=== PATIENT | female | born 1935 | race Caucasian/White ===

== ENCOUNTER → 2020-03-30 | Outpatient (RCR) | payer MEDICARE ==
[~2020-03-30] MED LIST: ASPIRIN CHEW81 MG PO; BENAZEPRIL HCL20 MG PO; CLORAZEPATE D3.75 MG PO; CRESTOR10 MG PO; LASIX40 MG PO; LIDOCAINE VISC 2% SOLN 15 ML UDC ONE; LIDOCAINE/PRILOCAINE 2.5-2.5% KIT ONE; MUPIROCIN 2% OINT 22 GM TUBE ONE; NEXIUM40 MG PO; SYNTHROID100 MCG PO
== END ==
LOC: WCC 03-02 10:50
PROVIDERS: ATTEND Family Medicine Adult Medicine
DX: I82.401 Acute embolism and thrombosis of unspecified deep veins of right lower extremity (principal); S81.821A Laceration with foreign body, right lower leg, initial encounter; R60.0 Localized edema; C44.91 Basal cell carcinoma of skin, unspecified; E03.9 Hypothyroidism, unspecified; E78.49 Other hyperlipidemia; I10 Essential (primary) hypertension; M13.80 Other specified arthritis, unspecified site; W20.8XXA Other cause of strike by thrown, projected or falling object, initial encounter
CPT/HCPCS: 10140

== ENCOUNTER 2020-04-27 13:35 | Outpatient (RCR) | payer MEDICARE ==
[~2020-04-27 13:35] MED LIST changes: -MUPIROCIN 2% OINT 22 GM TUBE ONE
== END 2020-04-30 ==
LOC: WCC 13:35
PROVIDERS: ATTEND Family Medicine Adult Medicine
DX: I82.401 Acute embolism and thrombosis of unspecified deep veins of right lower extremity (principal); S81.821A Laceration with foreign body, right lower leg, initial encounter; R60.0 Localized edema; C44.91 Basal cell carcinoma of skin, unspecified; I10 Essential (primary) hypertension; E03.9 Hypothyroidism, unspecified; E78.49 Other hyperlipidemia; M13.80 Other specified arthritis, unspecified site; W20.8XXA Other cause of strike by thrown, projected or falling object, initial encounter

== ENCOUNTER 2020-05-25 15:06 | Outpatient (RCR) | payer MEDICARE ==
[~2020-05-25 15:06] MED LIST changes: +TRIAMCINOLONE ACET 0.1% CREAM 15 GM TUBE ONE
== END 2020-05-28 ==
LOC: WCC 15:06
PROVIDERS: ATTEND Family Medicine Adult Medicine
DX: I82.401 Acute embolism and thrombosis of unspecified deep veins of right lower extremity (principal); S81.821A Laceration with foreign body, right lower leg, initial encounter; R60.0 Localized edema; C44.91 Basal cell carcinoma of skin, unspecified; L98.8 Other specified disorders of the skin and subcutaneous tissue; L20.9 Atopic dermatitis, unspecified; I10 Essential (primary) hypertension; E03.9 Hypothyroidism, unspecified; E78.49 Other hyperlipidemia; M13.80 Other specified arthritis, unspecified site; W20.8XXA Other cause of strike by thrown, projected or falling object, initial encounter

== ENCOUNTER → 2020-05-29 | Outpatient (CLI) | payer MEDICARE ==
[~2020-05-29] MED LIST changes: -LIDOCAINE VISC 2% SOLN 15 ML UDC ONE; -LIDOCAINE/PRILOCAINE 2.5-2.5% KIT ONE; -TRIAMCINOLONE ACET 0.1% CREAM 15 GM TUBE ONE
== END ==
LOC: CARD 07:55
PROVIDERS: ATTEND Family Medicine Adult Medicine
DX: S81.821A Laceration with foreign body, right lower leg, initial encounter (principal)
CPT/HCPCS: 93925; 93970

== ENCOUNTER 2020-06-08 14:06 | Outpatient (RCR) | payer MEDICARE ==
[2020-06-08] MEDS ORDERED: MINERAL OIL/PETROLAT/GLYCERI 2OZ CRM ONE (16:22)
== END 2020-06-28 ==
LOC: WCC 14:06
PROVIDERS: ATTEND Family Medicine Adult Medicine
DX: C44.91 Basal cell carcinoma of skin, unspecified (principal); I82.401 Acute embolism and thrombosis of unspecified deep veins of right lower extremity; L98.8 Other specified disorders of the skin and subcutaneous tissue; R60.0 Localized edema; S81.821A Laceration with foreign body, right lower leg, initial encounter; S80.811A Abrasion, right lower leg, initial encounter; E03.9 Hypothyroidism, unspecified; E78.49 Other hyperlipidemia; I10 Essential (primary) hypertension; M13.80 Other specified arthritis, unspecified site; W20.8XXA Other cause of strike by thrown, projected or falling object, initial encounter; X58.XXXA Exposure to other specified factors, initial encounter

== ENCOUNTER 2021-06-22 08:52 | Inpatient (IN) | payer MEDICARE ==
[~2021-06-22] VITALS: Ht 160 cm; Wt 68.0 kg
[2021-06-22] MEDS ORDERED: Vancomycin IV 1 GM in SODIUM CHLORIDE 0.9% 250ML 250 ML IV ONE (09:30)
[2021-06-22] MEDS ORDERED: PIPERACILLIN/TAZOBACTAM 3.375 GM in SODIUM CHLORIDE 0.9% 50ML 50 ML IV ONE (09:30)
[2021-06-22] MEDS ORDERED: SODIUM CHLORIDE 0.9% 250ML 250 ML ONE ×2 (09:42→12:11)
[2021-06-22] MEDS ORDERED: Vancomycin IV 1 GM VIAL ONE (09:42)
[2021-06-22] MEDS ORDERED: SODIUM CHLORIDE 0.9% 100 ML ONE (09:44)
[2021-06-22] MEDS ORDERED: PIPERACILLIN/TAZOBACTAM 3.375 GM VIAL ONE (09:45)
[2021-06-22] MEDS ORDERED: ONDANSETRON HCL INJ 2MG/ML 2ML 2 MG/ML VIAL IV PRN ×2 (10:00→11:45)
[2021-06-22] MEDS ORDERED: SODIUM CHLORIDE FLUSH 10 ML SYR INJ PRN (10:00)
[2021-06-22] MEDS ORDERED: ACETAMINOPHEN 325 MG TAB PO ONE (10:00)
[2021-06-22 11:28] VITALS: BP 111/63
[2021-06-22 11:35] VITALS: BP 111/63
[2021-06-22] MEDS ORDERED: DEXAMETHASONE SOD PHOS INJ 4 MG/ML SDV ONE (12:25)
[2021-06-22] MEDS ORDERED: METOPROLOL TARTRATE INJ 1 MG/ML VIAL ONE (12:25)
[2021-06-22] MEDS ORDERED: ONDANSETRON HCL INJ 2MG/ML 2ML 2 MG/ML VIAL ONE (12:25)
[2021-06-22] MEDS ORDERED: PROPOFOL IV EMULSION 10 MG/ML 20 ML VIAL ONE (12:25)
[2021-06-22] MEDS ORDERED: SEVOFLURANE INHAL SOLN 250 ML PEN BTL ONE (12:25)
[2021-06-22] MEDS ORDERED: POVIDONE IODINE 0.05% 0.05 % ML PO ONE (12:25)
[2021-06-22] MEDS: PIPERACILLIN/TAZOBACTAM 3.375 GM in SODIUM CHLORIDE 0.9% 50ML 50 ML IV SCH ×2 (12:47→16:59)
[2021-06-22] MEDS: PANTOPRAZOLE SOD 40 MG TABEC PO SCH (16:59)
[2021-06-22] MEDS: ENOXAPARIN SOD INJ 40 MG/0.4 ML SYR SC SCH (16:59)
[2021-06-22 17:57] VITALS: BP 98/63
[2021-06-22 20:05] VITALS: BP 112/58
[2021-06-22] MEDS: ACETAMINOPHEN/CODEINE 300MG - 30MG TAB PO PRN (21:20)
[2021-06-22 23:11] VITALS: BP 112/58
[2021-06-23] VITALS (8 sets, daily range): BP systolic 106–143; BP diastolic 53–76
[2021-06-23] MEDS: LEVOTHYROXINE SODIUM 100 MCG TAB PO SCH (05:50)
[2021-06-23] MEDS: ACETAMINOPHEN 325 MG TAB PO PRN ×2 (05:50→23:20)
[2021-06-23] MEDS: PIPERACILLIN/TAZOBACTAM 3.375 GM in SODIUM CHLORIDE 0.9% 50ML 50 ML IV SCH ×6 (05:50→23:20)
[2021-06-23 05:55] LABS: BASOPHILS # (AUTO) 0.1 (0.0-0.1); BASOPHILS % 1.4 % (0.0-1.0); EOSINOPHILS # (AUTO) 0.3 (0.0-0.4); EOSINOPHILS % 4.7 % (0.0-6.0); HEMATOCRIT 34.7 % (34.2-44.1); HEMOGLOBIN 10.2 g/dL (12.0-16.0); LYMPHOCYTES # (AUTO) 1.5 (1.0-3.2); MEAN CORPUSCULAR HEMOGLOBIN 28.7 pg (28-32); MEAN CORPUSCULAR HGB CONC 29.4 g/dL (31-35); MEAN CORPUSCULAR VOLUME 97.7 fL (81-99); MONOCYTES # (AUTO) 0.8 (0.2-0.8); MONOCYTES % 12.7 % (4.4-11.3); NEUTROPHILS # (AUTO) 3.7 (2.1-6.9); NEUTROPHILS % 57.7 % (38.7-80.0); PLATELET COUNT 220 x10e3/uL (140-360); RED BLOOD COUNT 3.55 x10e6/uL (3.6-5.1)
[2021-06-23 06:15] LABS: ANION GAP 12.6 mmol/L (8-16); CALCIUM 7.3 mg/dL (8.4-10.2); CREATININE, SERUM 1.24 mg/dL (0.57-1.11); POTASSIUM 4.6 mmol/L (3.5-5.1)
[2021-06-23] MEDS ORDERED: SIMVASTATIN 40 MG TAB PO SCH (09:00)
[2021-06-23] MEDS: PANTOPRAZOLE SOD 40 MG TABEC PO SCH ×2 (09:53→17:11)
[2021-06-23] MEDS: ASPIRIN 81 MG CHEW TAB PO SCH (09:53)
[2021-06-23] MEDS: BENAZEPRIL HCL 10 MG TAB PO SCH (09:54)
[2021-06-23] MEDS: CRESTOR 10MG PO SCH (09:54)
[2021-06-23] MEDS: ACETAMINOPHEN/CODEINE 300MG - 30MG TAB PO PRN (09:57)
[2021-06-23] MEDS ORDERED: Vancomycin IV 1 GM in SODIUM CHLORIDE 0.9% 250ML 250 ML IV ONE ×2 (14:00→17:30)
[2021-06-23] MEDS: ACETAMIN/BUTALBITAL/CAFFEINE TAB PO PRN (14:14)
[2021-06-23] MEDS: ENOXAPARIN SOD INJ 40 MG/0.4 ML SYR SC SCH (17:11)
[2021-06-23] MEDS: CLORAZEPATE DIPOTASSIUM 3.75 MG TAB PO SCH (17:23)
[2021-06-24] VITALS (7 sets, daily range): BP systolic 123–155; BP diastolic 59–98
[2021-06-24] MEDS: LEVOTHYROXINE SODIUM 100 MCG TAB PO SCH (05:18)
[2021-06-24] MEDS: PIPERACILLIN/TAZOBACTAM 3.375 GM in SODIUM CHLORIDE 0.9% 50ML 50 ML IV SCH (05:18)
[2021-06-24 07:26] LABS: ALBUMIN 2.6 g/dL (3.5-5.0); ALBUMIN/GLOBULIN RATIO 0.7 (0.8-2.0); ANION GAP 9.2 mmol/L (8-16); CALCIUM 7.3 mg/dL (8.4-10.2); CREATININE, SERUM 1.09 mg/dL (0.57-1.11); POTASSIUM 4.2 mmol/L (3.5-5.1)
[2021-06-24] MEDS: PANTOPRAZOLE SOD 40 MG TABEC PO SCH ×2 (08:45→16:04)
[2021-06-24] MEDS: CRESTOR 10MG PO SCH (08:45)
[2021-06-24] MEDS: ASPIRIN 81 MG CHEW TAB PO SCH (08:45)
[2021-06-24] MEDS: BENAZEPRIL HCL 10 MG TAB PO SCH (08:46)
[2021-06-24] MEDS: CLORAZEPATE DIPOTASSIUM 3.75 MG TAB PO SCH ×2 (08:46→20:23)
[2021-06-24] MEDS: ACETAMINOPHEN/CODEINE 300MG - 30MG TAB PO PRN (08:48)
[2021-06-24] MEDS: FUROSEMIDE 20 MG TAB PO SCH (13:38)
[2021-06-24] MEDS: Vancomycin IV 1 GM in SODIUM CHLORIDE 0.9% 250ML 250 ML IV SCH (13:38)
[2021-06-24] MEDS: HYDROCODONE/APAP 5MG-325MG TAB PO PRN (14:42)
[2021-06-24] MEDS: ENOXAPARIN SOD INJ 40 MG/0.4 ML SYR SC SCH (16:05)
[2021-06-24] MEDS: CEFEPIME 1 GM in SODIUM CHLORIDE 0.9% 50ML 50 ML IV SCH (20:23)
[2021-06-25] VITALS (7 sets, daily range): BP systolic 120–135; BP diastolic 59–73
[2021-06-25] MEDS: Vancomycin IV 1 GM in SODIUM CHLORIDE 0.9% 250ML 250 ML IV SCH ×2 (00:52→13:15)
[2021-06-25] MEDS: ACETAMIN/BUTALBITAL/CAFFEINE TAB PO PRN (04:29)
[2021-06-25] MEDS: LEVOTHYROXINE SODIUM 100 MCG TAB PO SCH (05:26)
[2021-06-25] MEDS: PANTOPRAZOLE SOD 40 MG TABEC PO SCH ×2 (07:30→17:06)
[2021-06-25] MEDS: CEFEPIME 1 GM in SODIUM CHLORIDE 0.9% 50ML 50 ML IV SCH ×2 (09:00→20:48)
[2021-06-25] MEDS: CRESTOR 10MG PO SCH (09:00)
[2021-06-25] MEDS: ASPIRIN 81 MG CHEW TAB PO SCH (09:00)
[2021-06-25] MEDS: FUROSEMIDE 20 MG TAB PO SCH (09:35)
[2021-06-25] MEDS: BENAZEPRIL HCL 10 MG TAB PO SCH (09:35)
[2021-06-25] MEDS: CLORAZEPATE DIPOTASSIUM 3.75 MG TAB PO SCH ×2 (09:35→20:48)
[2021-06-25] MEDS: HYDROCODONE/APAP 5MG-325MG TAB PO PRN ×2 (09:40→18:48)
[2021-06-25] MEDS ORDERED: BUPIVACAINE HCL 0.5% INJ 30 ML VIAL INJ ONE (14:04)
[2021-06-25] MEDS ORDERED: ONDANSETRON HCL INJ 2MG/ML 2ML 2 MG/ML VIAL ONE (14:26)
[2021-06-25] MEDS ORDERED: ONDANSETRON HCL 4 MG ORAL DISINTEGRATING TAB PO PRN (19:15)
[2021-06-26] VITALS (8 sets, daily range): BP systolic 95–113; BP diastolic 51–78
[2021-06-26] MEDS: Vancomycin IV 1 GM in SODIUM CHLORIDE 0.9% 250ML 250 ML IV SCH (01:11)
[2021-06-26 05:00] LABS: BASOPHILS % 0.3 % (0.0-1.0); HEMOGLOBIN 9.9 g/dL (12.0-16.0); LYMPHOCYTES # (AUTO) 0.6 (1.0-3.2); LYMPHOCYTES % 5.1 % (18.0-39.1); MEAN CORPUSCULAR HEMOGLOBIN 29.5 pg (28-32); MEAN CORPUSCULAR VOLUME 98.2 fL (81-99); MONOCYTES # (AUTO) 1.3 (0.2-0.8); MONOCYTES % 12.3 % (4.4-11.3); NEUTROPHILS # (AUTO) 8.8 (2.1-6.9); NEUTROPHILS % 81.7 % (38.7-80.0); PLATELET COUNT 173 x10e3/uL (140-360); RED BLOOD COUNT 3.36 x10e6/uL (3.6-5.1)
[2021-06-26 05:24] LABS: ALBUMIN/GLOBULIN RATIO 0.5 (0.8-2.0); ANION GAP 15.9 mmol/L (8-16); CREATININE, SERUM 1.42 mg/dL (0.57-1.11); POTASSIUM 3.9 mmol/L (3.5-5.1)
[2021-06-26 05:55] LABS: CALCIUM 6.8 mg/dL (8.4-10.2)
[2021-06-26] MEDS ORDERED: CALCIUM GLUC 1 G/50 ML NACL 50 ML IV ONE (06:15)
[2021-06-26] MEDS: LEVOTHYROXINE SODIUM 100 MCG TAB PO SCH (06:48)
[2021-06-26] MEDS ORDERED: LACTATED RINGER'S 1,000 ML INJ ONE (09:15)
[2021-06-26] MEDS: ASPIRIN 81 MG CHEW TAB PO SCH (09:50)
[2021-06-26] MEDS: CRESTOR 10MG PO SCH (09:50)
[2021-06-26] MEDS: CLORAZEPATE DIPOTASSIUM 3.75 MG TAB PO SCH ×2 (09:51→21:30)
[2021-06-26] MEDS: BENAZEPRIL HCL 10 MG TAB PO SCH (09:51)
[2021-06-26] MEDS: PIPERACILLIN/TAZOBACTAM 3.375 GM in SODIUM CHLORIDE 0.9% 50ML 50 ML IV SCH ×2 (09:52→21:30)
[2021-06-26] MEDS ORDERED: ENOXAPARIN SOD INJ 40 MG/0.4 ML SYR SC SCH ×2 (17:00)
[2021-06-26] MEDS: HYDROCODONE/APAP 5MG-325MG TAB PO PRN (21:45)
[2021-06-27] VITALS (9 sets, daily range): BP systolic 94–118; BP diastolic 54–70
[2021-06-27] MEDS: ACETAMIN/BUTALBITAL/CAFFEINE TAB PO PRN (04:42)
[2021-06-27 04:57] LABS: BASOPHILS % 0.2 % (0.0-1.0); EOSINOPHILS # (AUTO) 0.1 (0.0-0.4); EOSINOPHILS % 1.1 % (0.0-6.0); HEMATOCRIT 31.8 % (34.2-44.1); LYMPHOCYTES # (AUTO) 1.1 (1.0-3.2); MEAN CORPUSCULAR HEMOGLOBIN 28.7 pg (28-32); MEAN CORPUSCULAR HGB CONC 31.4 g/dL (31-35); MEAN CORPUSCULAR VOLUME 91.4 fL (81-99); MONOCYTES % 9.1 % (4.4-11.3); NEUTROPHILS % 78.9 % (38.7-80.0); PLATELET COUNT 231 x10e3/uL (140-360); RED BLOOD COUNT 3.48 x10e6/uL (3.6-5.1); RED CELL DISTRIBUTION WIDTH 14.9 % (11.7-14.4)
[2021-06-27] MEDS: LEVOTHYROXINE SODIUM 100 MCG TAB PO SCH (05:00)
[2021-06-27 05:21] LABS: ANION GAP 12.9 mmol/L (8-16); CALCIUM 7.1 mg/dL (8.4-10.2); CREATININE, SERUM 1.72 mg/dL (0.57-1.11); POTASSIUM 3.9 mmol/L (3.5-5.1)
[2021-06-27] MEDS: CLORAZEPATE DIPOTASSIUM 3.75 MG TAB PO SCH ×2 (09:00→20:59)
[2021-06-27] MEDS: MUPIROCIN 2% OINT 22 GM TUBE TOP SCH (09:00)
[2021-06-27] MEDS: PIPERACILLIN/TAZOBACTAM 3.375 GM in SODIUM CHLORIDE 0.9% 50ML 50 ML IV SCH ×2 (09:00→20:58)
[2021-06-27] MEDS: CRESTOR 10MG PO SCH (09:17)
[2021-06-27] MEDS: ASPIRIN 81 MG CHEW TAB PO SCH (09:17)
[2021-06-27] MEDS: METOPROLOL TARTRATE 25 MG TAB PO PRN (09:18)
[2021-06-27] MEDS: LACTATED RINGER'S 1,000 ML INJ SCH ×2 (11:55→17:15)
[2021-06-27] MEDS: METOPROLOL TARTRATE 50 MG TAB PO SCH ×2 (12:00→16:50)
[2021-06-27] MEDS: AMIODARONE HCL 200 MG TAB PO SCH ×2 (12:30→20:58)
[2021-06-27] MEDS: HEPARIN SOD (PORCINE) 5,000 UNIT/ML VIAL SC SCH ×2 (12:30→20:20)
[2021-06-27] MEDS: ACETAMINOPHEN 325 MG TAB PO PRN (14:00)
[2021-06-27] MEDS ORDERED: IPRATROPIUM BROMIDE 0.02% 2.5 ML NEB NEB PRN (16:45)
[2021-06-27] MEDS: HYDROCODONE/APAP 5MG-325MG TAB PO PRN (20:45)
[2021-06-28] VITALS (8 sets, daily range): BP systolic 103–126; BP diastolic 60–77
[2021-06-28] MEDS: HEPARIN SOD (PORCINE) 5,000 UNIT/ML VIAL SC SCH ×3 (04:20→22:00)
[2021-06-28] MEDS: LACTATED RINGER'S 1,000 ML INJ SCH (04:30)
[2021-06-28 04:58] LABS: BASOPHILS % 0.4 % (0.0-1.0); EOSINOPHILS # (AUTO) 0.3 (0.0-0.4); EOSINOPHILS % 3.5 % (0.0-6.0); HEMOGLOBIN 9.6 g/dL (12.0-16.0); LYMPHOCYTES # (AUTO) 0.8 (1.0-3.2); MEAN CORPUSCULAR HEMOGLOBIN 29.1 pg (28-32); MEAN CORPUSCULAR VOLUME 90.9 fL (81-99); MONOCYTES # (AUTO) 0.8 (0.2-0.8); NEUTROPHILS # (AUTO) 7.1 (2.1-6.9); NEUTROPHILS % 77.2 % (38.7-80.0); PLATELET COUNT 259 x10e3/uL (140-360); RED CELL DISTRIBUTION WIDTH 14.6 % (11.7-14.4)
[2021-06-28] MEDS: HYDROCODONE/APAP 5MG-325MG TAB PO PRN (05:00)
[2021-06-28 05:20] LABS: ANION GAP 12.8 mmol/L (8-16); CALCIUM 7.1 mg/dL (8.4-10.2); CREATININE, SERUM 1.26 mg/dL (0.57-1.11); POTASSIUM 3.8 mmol/L (3.5-5.1)
[2021-06-28] MEDS ORDERED: HEPARIN SOD (PORCINE) 5,000 UNIT/ML VIAL SC SCH (09:00)
[2021-06-28] MEDS: AMIODARONE HCL 200 MG TAB PO SCH ×2 (10:30→16:50)
[2021-06-28] MEDS: CRESTOR 10MG PO SCH (10:30)
[2021-06-28] MEDS: ASPIRIN 81 MG CHEW TAB PO SCH (10:30)
[2021-06-28] MEDS: CLORAZEPATE DIPOTASSIUM 3.75 MG TAB PO SCH ×2 (10:30→21:00)
[2021-06-28] MEDS ORDERED: KETOROLAC TROMETHAMINE 30 MG/ML VIAL IV ONE (12:45)
[2021-06-28] MEDS: MUPIROCIN 2% OINT 22 GM TUBE TOP SCH (13:00)
[2021-06-28] MEDS ORDERED: KETOROLAC TROMETHAMINE 30 MG/ML VIAL IV PRN (15:00)
[2021-06-28] MEDS ORDERED: METHYLPREDNISOLONE SOD SUCC 40 MG/ML VIAL 1ML IV ONE (15:35)
[2021-06-28] MEDS: METOPROLOL TARTRATE 25 MG TAB PO SCH (16:50)
[2021-06-28] MEDS ORDERED: ENOXAPARIN SOD INJ 60 MG/0.6 ML SYR SC SCH (21:00)
[2021-06-29] VITALS (7 sets, daily range): BP systolic 109–137; BP diastolic 57–75
[2021-06-29 04:57] LABS: BASOPHILS % 0.1 % (0.0-1.0); HEMOGLOBIN 8.5 g/dL (12.0-16.0); LYMPHOCYTES # (AUTO) 0.5 (1.0-3.2); LYMPHOCYTES % 4.3 % (18.0-39.1); MEAN CORPUSCULAR HEMOGLOBIN 28.6 pg (28-32); MEAN CORPUSCULAR HGB CONC 31.5 g/dL (31-35); MEAN CORPUSCULAR VOLUME 90.9 fL (81-99); MONOCYTES # (AUTO) 0.6 (0.2-0.8); MONOCYTES % 4.8 % (4.4-11.3); NEUTROPHILS % 90.1 % (38.7-80.0); PLATELET COUNT 258 x10e3/uL (140-360); RED BLOOD COUNT 2.97 x10e6/uL (3.6-5.1); RED CELL DISTRIBUTION WIDTH 14.7 % (11.7-14.4)
[2021-06-29 05:27] LABS: ANION GAP 13.1 mmol/L (8-16); CALCIUM 7.2 mg/dL (8.4-10.2); CREATININE, SERUM 1.11 mg/dL (0.57-1.11); MAGNESIUM 2.5 MG/DL (1.3-2.1); POTASSIUM 4.1 mmol/L (3.5-5.1)
[2021-06-29] MEDS: HEPARIN SOD (PORCINE) 5,000 UNIT/ML VIAL SC SCH ×3 (05:36→21:33)
[2021-06-29] MEDS: METOPROLOL TARTRATE 25 MG TAB PO SCH ×2 (09:14→16:21)
[2021-06-29] MEDS: ASPIRIN 81 MG CHEW TAB PO SCH (09:14)
[2021-06-29] MEDS: CRESTOR 10MG PO SCH (09:14)
[2021-06-29] MEDS: AMIODARONE HCL 200 MG TAB PO SCH ×2 (09:14→16:20)
[2021-06-29] MEDS: CEFTRIAXONE 1 GM in SODIUM CHLORIDE 0.9% 50ML 50 ML IV SCH (09:15)
[2021-06-29] MEDS: CLORAZEPATE DIPOTASSIUM 3.75 MG TAB PO SCH ×2 (09:15→21:00)
[2021-06-29] MEDS: MUPIROCIN 2% OINT 22 GM TUBE TOP SCH (09:15)
[2021-06-29] MEDS: ACETAMIN/BUTALBITAL/CAFFEINE TAB PO PRN (21:42)
[2021-06-30] VITALS (7 sets, daily range): BP systolic 97–148; BP diastolic 55–87
[2021-06-30] MEDS: HEPARIN SOD (PORCINE) 5,000 UNIT/ML VIAL SC SCH (06:00)
[2021-06-30 07:02] LABS: BASOPHILS % 0.2 % (0.0-1.0); EOSINOPHILS # (AUTO) 0.2 (0.0-0.4); EOSINOPHILS % 1.9 % (0.0-6.0); HEMATOCRIT 27.6 % (34.2-44.1); HEMOGLOBIN 8.7 g/dL (12.0-16.0); LYMPHOCYTES # (AUTO) 1.1 (1.0-3.2); LYMPHOCYTES % 8.7 % (18.0-39.1); MEAN CORPUSCULAR HEMOGLOBIN 28.8 pg (28-32); MEAN CORPUSCULAR HGB CONC 31.5 g/dL (31-35); MEAN CORPUSCULAR VOLUME 91.4 fL (81-99); MONOCYTES # (AUTO) 0.9 (0.2-0.8); MONOCYTES % 7.2 % (4.4-11.3); PLATELET COUNT 337 x10e3/uL (140-360); RED BLOOD COUNT 3.02 x10e6/uL (3.6-5.1); RED CELL DISTRIBUTION WIDTH 14.8 % (11.7-14.4)
[2021-06-30 07:08] LABS: ANION GAP 12.9 mmol/L (8-16); CALCIUM 7.1 mg/dL (8.4-10.2); CREATININE, SERUM 1.09 mg/dL (0.57-1.11); POTASSIUM 3.9 mmol/L (3.5-5.1)
[2021-06-30] MEDS: AMIODARONE HCL 200 MG TAB PO SCH (09:42)
[2021-06-30] MEDS: METOPROLOL TARTRATE 25 MG TAB PO SCH ×2 (09:42→16:36)
[2021-06-30] MEDS: CLORAZEPATE DIPOTASSIUM 3.75 MG TAB PO SCH ×2 (09:42→21:06)
[2021-06-30] MEDS: CEFTRIAXONE 1 GM in SODIUM CHLORIDE 0.9% 50ML 50 ML IV SCH (09:42)
[2021-06-30] MEDS: ASPIRIN 81 MG CHEW TAB PO SCH (09:42)
[2021-06-30] MEDS: CRESTOR 10MG PO SCH (09:42)
[2021-06-30] MEDS: MUPIROCIN 2% OINT 22 GM TUBE TOP SCH (09:43)
[2021-06-30] MEDS: ACETAMIN/BUTALBITAL/CAFFEINE TAB PO PRN ×2 (10:00→20:00)
[2021-06-30] MEDS: ACETAMINOPHEN 325 MG TAB PO PRN ×2 (12:15→23:11)
[2021-06-30] MEDS: APIXAB 2.5 MG TABLET PO SCH (16:35)
[2021-07-01] VITALS (7 sets, daily range): BP systolic 97–162; BP diastolic 55–89
[2021-07-01 06:49] LABS: BASOPHILS # (AUTO) 0.1 (0.0-0.1); BASOPHILS % 0.5 % (0.0-1.0); EOSINOPHILS # (AUTO) 0.2 (0.0-0.4); EOSINOPHILS % 1.8 % (0.0-6.0); HEMATOCRIT 29.9 % (34.2-44.1); HEMOGLOBIN 9.4 g/dL (12.0-16.0); LYMPHOCYTES # (AUTO) 1.1 (1.0-3.2); LYMPHOCYTES % 9.3 % (18.0-39.1); MEAN CORPUSCULAR HEMOGLOBIN 28.5 pg (28-32); MEAN CORPUSCULAR HGB CONC 31.4 g/dL (31-35); MEAN CORPUSCULAR VOLUME 90.6 fL (81-99); MONOCYTES % 8.9 % (4.4-11.3); NEUTROPHILS # (AUTO) 8.8 (2.1-6.9); NEUTROPHILS % 77.1 % (38.7-80.0); PLATELET COUNT 423 x10e3/uL (140-360); RED CELL DISTRIBUTION WIDTH 14.8 % (11.7-14.4)
[2021-07-01] MEDS: ACETAMIN/BUTALBITAL/CAFFEINE TAB PO PRN (07:07)
[2021-07-01 07:16] LABS: ALBUMIN 1.8 g/dL (3.5-5.0); ALBUMIN/GLOBULIN RATIO 0.4 (0.8-2.0); ANION GAP 12.2 mmol/L (8-16); CALCIUM 7.5 mg/dL (8.4-10.2); CREATININE, SERUM 0.97 mg/dL (0.57-1.11); POTASSIUM 4.2 mmol/L (3.5-5.1)
[2021-07-01] MEDS: CRESTOR 10MG PO SCH (09:25)
[2021-07-01] MEDS: APIXAB 2.5 MG TABLET PO SCH ×2 (09:25→16:34)
[2021-07-01] MEDS: CEFTRIAXONE 1 GM in SODIUM CHLORIDE 0.9% 50ML 50 ML IV SCH (09:25)
[2021-07-01] MEDS: AMIODARONE HCL 200 MG TAB PO SCH (09:25)
[2021-07-01] MEDS: METOPROLOL TARTRATE 25 MG TAB PO SCH ×2 (09:26→16:35)
[2021-07-01] MEDS: MUPIROCIN 2% OINT 22 GM TUBE TOP SCH (09:26)
[2021-07-01] MEDS: CLORAZEPATE DIPOTASSIUM 3.75 MG TAB PO SCH (09:26)
[2021-07-01] MEDS ORDERED: SODIUM CHLORIDE 0.9% 250ML 250 ML ONE (09:41)
[2021-07-01] MEDS: ACETAMINOPHEN 325 MG TAB PO PRN ×2 (13:21→21:59)
[2021-07-01] MEDS: POLYETHYLENE GLYCOL 3350 17 GM PACK PO SCH (15:00)
[2021-07-01] MEDS: METOPROLOL TARTRATE 25 MG TAB PO PRN (21:59)
[2021-07-02] VITALS: BP 136/67
[2021-07-02 02:04] VITALS: BP 136/67
[2021-07-02 05:00] VITALS: BP 143/76
[2021-07-02 05:56] LABS: BASOPHILS # (AUTO) 0.1 (0.0-0.1); BASOPHILS % 0.8 % (0.0-1.0); EOSINOPHILS # (AUTO) 0.2 (0.0-0.4); EOSINOPHILS % 1.7 % (0.0-6.0); HEMATOCRIT 29.5 % (34.2-44.1); LYMPHOCYTES # (AUTO) 1.5 (1.0-3.2); MEAN CORPUSCULAR HGB CONC 30.5 g/dL (31-35); MEAN CORPUSCULAR VOLUME 91.9 fL (81-99); MONOCYTES # (AUTO) 1.2 (0.2-0.8); MONOCYTES % 10.5 % (4.4-11.3); NEUTROPHILS # (AUTO) 7.5 (2.1-6.9); NEUTROPHILS % 67.9 % (38.7-80.0); PLATELET COUNT 425 x10e3/uL (140-360); RED BLOOD COUNT 3.21 x10e6/uL (3.6-5.1); RED CELL DISTRIBUTION WIDTH 14.8 % (11.7-14.4)
[2021-07-02 08:00] VITALS: BP 152/92
[2021-07-02 08:40] VITALS: BP 152/92
[2021-07-02] MEDS: POLYETHYLENE GLYCOL 3350 17 GM PACK PO SCH (09:00)
[2021-07-02] MEDS: CRESTOR 10MG PO SCH (10:54)
[2021-07-02] MEDS: METOPROLOL TARTRATE 25 MG TAB PO SCH (10:54)
[2021-07-02] MEDS: CEFTRIAXONE 1 GM in SODIUM CHLORIDE 0.9% 50ML 50 ML IV SCH (10:54)
[2021-07-02] MEDS: APIXAB 2.5 MG TABLET PO SCH (10:54)
[2021-07-02] MEDS: AMIODARONE HCL 200 MG TAB PO SCH (10:54)
[2021-07-02] MEDS: MUPIROCIN 2% OINT 22 GM TUBE TOP SCH (10:55)
[2021-07-02 12:00] VITALS: BP 141/86
== END 2021-07-02 14:13 | DRG 516 ==
LOC: FSED 09:09 → ERHOLD 10:04 → MED/SURG2 11:00
PROVIDERS: ADMIT Internal Medicine; ATTEND Internal Medicine
PROC: 0QBR0ZZ Excision of Left Toe Phalanx, Open Approach (ICD-10-PCS; principal; 2021-06-26)
PROC: 02HV33Z Insertion of Infusion Device into Superior Vena Cava, Percutaneous Approach (ICD-10-PCS; 2021-06-30)
DX: M86.172 Other acute osteomyelitis, left ankle and foot (principal); I96 Gangrene, not elsewhere classified; L02.612 Cutaneous abscess of left foot; N17.9 Acute kidney failure, unspecified; S92.532A Displaced fracture of distal phalanx of left lesser toe(s), initial encounter for closed fracture; M10.072 Idiopathic gout, left ankle and foot; L03.032 Cellulitis of left toe; I10 Essential (primary) hypertension; E78.5 Hyperlipidemia, unspecified; E03.9 Hypothyroidism, unspecified; M19.90 Unspecified osteoarthritis, unspecified site; K21.9 Gastro-esophageal reflux disease without esophagitis; Z86.718 Personal history of other venous thrombosis and embolism; Z79.01 Long term (current) use of anticoagulants; E78.00 Pure hypercholesterolemia, unspecified; I25.10 Atherosclerotic heart disease of native coronary artery without angina pectoris; M20.42 Other hammer toe(s) (acquired), left foot; M20.41 Other hammer toe(s) (acquired), right foot; L84 Corns and callosities; M25.775 Osteophyte, left foot; M19.072 Primary osteoarthritis, left ankle and foot; M19.071 Primary osteoarthritis, right ankle and foot; X58.XXXA Exposure to other specified factors, initial encounter; Y93.01 Activity, walking, marching and hiking; I48.0 Paroxysmal atrial fibrillation; Z95.5 Presence of coronary angioplasty implant and graft; M77.8 Other enthesopathies, not elsewhere classified; R00.0 Tachycardia, unspecified; E05.90 Thyrotoxicosis, unspecified without thyrotoxic crisis or storm; S96.112A Strain of muscle and tendon of long extensor muscle of toe at ankle and foot level, left foot, initial encounter; G43.909 Migraine, unspecified, not intractable, without status migrainosus; Z20.822 Contact with and (suspected) exposure to COVID-19
CPT/HCPCS: 36415; 36569; 71045; 76770; 80048; 80053; 82948; 83735; 84443; 84550; 85025; 87040; 87071; 87075; 87205; 88304; 88311; 93005; 93306; 93925; 96361; 97139; 99251; 99284; J0692; J0696; J1100; J1644; J1650; J1885; J2405; J2543; J2920; J3370; J7050; J7121; U0002

== ENCOUNTER 2021-12-24 18:06 | Emergency (ER) | payer MEDICARE ==
[~2021-12-24] VITALS: Ht 160 cm; Wt 65.8 kg
[2021-12-24] MEDS ORDERED: SODIUM CHLORIDE 0.9% 500ML 500 ML IV ONE (20:00)
[2021-12-24] MEDS ORDERED: SODIUM CHLORIDE 0.9% 500ML 500 ML ONE (20:04)
[2021-12-24] MEDS ORDERED: CEFDINIR300 MG PO (20:24)
== END 2021-12-24 20:40 | disposition home or self-care (01) ==
LOC: FSED 18:12
DX: E86.0 Dehydration (principal); N39.0 Urinary tract infection, site not specified; N28.9 Disorder of kidney and ureter, unspecified; I25.10 Atherosclerotic heart disease of native coronary artery without angina pectoris; K21.9 Gastro-esophageal reflux disease without esophagitis; E78.5 Hyperlipidemia, unspecified; Z86.718 Personal history of other venous thrombosis and embolism; Z79.01 Long term (current) use of anticoagulants; Z86.711 Personal history of pulmonary embolism; M19.90 Unspecified osteoarthritis, unspecified site
CPT/HCPCS: 71045; 80053; 81003; 83880; 85025; 99283; J7040

== ENCOUNTER 2023-06-24 16:04 | Outpatient (RCR) | payer MEDICARE ==
[~2023-06-24 16:04] MED LIST changes: +CEFDINIR300 MG PO; +LIDOCAINE/PRILOCAINE 2.5-2.5% KIT ONE
[2023-07-08] MEDS ORDERED: TRIAMCINOLONE ACET 0.1% CREAM 15 GM TUBE ONE (14:55)
[2023-07-08] MEDS ORDERED: MINERAL OIL/PETROLAT/GLYCERI 6OZ BTL ONE (14:55)
[2023-07-11] MEDS ORDERED: CLOTRIMAZOLE/BETAMETHASONE 45 GM CR TP ONE (12:19)
[2023-07-11] MEDS ORDERED: LIDOCAINE VISC 2% SOLN 15 ML UDC ONE (12:19)
[2023-07-16] MEDS ORDERED: CLOTRIMAZOLE/BETAMETHASONE 45 GM CR TP ONE (12:59)
[2023-07-18] MEDS ORDERED: CLOTRIMAZOLE/BETAMETHASONE 45 GM CR TP ONE (13:17)
== END 2023-06-29 ==
LOC: WCC 16:04
PROVIDERS: ATTEND Nurse Practitioner Family
DX: S51.811A Laceration without foreign body of right forearm, initial encounter (principal); S51.011A Laceration without foreign body of right elbow, initial encounter; S61.411A Laceration without foreign body of right hand, initial encounter

== ENCOUNTER 2023-07-18 17:13 | Outpatient (RCR) | payer MEDICARE ==
[2023-07-02 17:11] LABS: BASOPHILS # (AUTO) 0.1 (0.0-0.1); BASOPHILS % 1.1 % (0.0-1.0); EOSINOPHILS # (AUTO) 0.2 (0.0-0.4); EOSINOPHILS % 3.1 % (0.0-6.0); HEMATOCRIT 37.3 % (34.2-44.1); HEMOGLOBIN 12.4 g/dL (12.0-16.0); LYMPHOCYTES # (AUTO) 1.3 (1.0-3.2); LYMPHOCYTES % 21.4 % (18.0-39.1); MEAN CORPUSCULAR HEMOGLOBIN 32.4 pg (28-32); MEAN CORPUSCULAR HGB CONC 33.2 g/dL (31-35); MEAN CORPUSCULAR VOLUME 97.4 fL (81-99); MONOCYTES # (AUTO) 0.7 (0.2-0.8); MONOCYTES % 10.6 % (4.4-11.3); NEUTROPHILS # (AUTO) 3.9 (2.1-6.9); NEUTROPHILS % 63.3 % (38.7-80.0); PLATELET COUNT 177 x10e3/uL (140-360); RED BLOOD COUNT 3.83 x10e6/uL (3.6-5.1); WHITE BLOOD COUNT 6.12 x10e3/uL (4.8-10.8)
[2023-07-02 17:28] LABS: ALBUMIN 3.5 g/dL (3.5-5.0); ALBUMIN/GLOBULIN RATIO 0.9 (0.8-2.0); BILIRUBIN,TOTAL 0.4 mg/dL (0.2-1.2); CALCIUM 9.6 mg/dL (8.4-10.2); CREATININE, SERUM 1.35 mg/dL (0.57-1.11); TOTAL PROTEIN 7.3 g/dL (6.5-8.1)
[~2023-07-18 17:13] MED LIST changes: -LIDOCAINE/PRILOCAINE 2.5-2.5% KIT ONE; +MUPIROCIN 2% OINT 22 GM TUBE ONE
== END 2023-07-29 ==
LOC: WCC 17:13
PROVIDERS: ATTEND Nurse Practitioner Family
DX: S51.811A Laceration without foreign body of right forearm, initial encounter (principal); S51.011A Laceration without foreign body of right elbow, initial encounter; S61.411A Laceration without foreign body of right hand, initial encounter
CPT/HCPCS: 36415; 80053; 84134; 85025

== ENCOUNTER 2024-06-09 22:00 | Inpatient (IN) | payer MEDICARE ==
[~2024-06-09] VITALS: Ht 160 cm; Wt 78.0 kg
[~2024-06-09 22:00] MED LIST changes: -MUPIROCIN 2% OINT 22 GM TUBE ONE
[2024-06-09 23:03] LABS: BASOPHILS % 0.4 % (0.0-1.0); EOSINOPHILS % 0.4 % (0.0-6.0); HEMATOCRIT 40.2 % (34.2-44.1); HEMOGLOBIN 13.2 g/dL (12.0-16.0); LYMPHOCYTES # (AUTO) 0.2 (1.0-3.2); LYMPHOCYTES % 3.8 % (18.0-39.1); MEAN CORPUSCULAR HEMOGLOBIN 30.6 pg (28-32); MEAN CORPUSCULAR HGB CONC 32.8 g/dL (31-35); MEAN CORPUSCULAR VOLUME 93.3 fL (81-99); MONOCYTES # (AUTO) 0.1 (0.2-0.8); MONOCYTES % 1.6 % (4.4-11.3); NEUTROPHILS # (AUTO) 5.2 (2.1-6.9); NEUTROPHILS % 93.1 % (38.7-80.0); PLATELET COUNT 169 x10e3/uL (140-360); RED BLOOD COUNT 4.31 x10e6/uL (3.6-5.1); RED CELL DISTRIBUTION WIDTH 15.3 % (11.7-14.4)
[2024-06-09 23:18] LABS: ALBUMIN 3.5 g/dL (3.5-5.0); ALBUMIN/GLOBULIN RATIO 0.8 (0.8-2.0); ANION GAP 19.2 mmol/L (8-16); BILIRUBIN,TOTAL 0.9 mg/dL (0.2-1.2); CALCIUM 9.8 mg/dL (8.4-10.2); CREATININE, SERUM 2.05 mg/dL (0.57-1.11); POTASSIUM 4.2 mmol/L (3.5-5.1)
[2024-06-09 23:24] LABS: TROPONIN I 0.021 ng/mL (0-0.300)
[2024-06-09] MEDS: Morphine 4mg INJECTION 4 MG/ML INJ IV STA (23:29)
[2024-06-09] MEDS: ONDANSETRON HCL INJ 2MG/ML 2ML 2 MG/ML VIAL IV STA (23:30)
[2024-06-09] MEDS: SODIUM CHLORIDE 0.9% 1000ML 1,000 ML IV STA ×2 (23:30→23:31)
[2024-06-10] VITALS (11 sets, daily range): BP systolic 91–183; BP diastolic 51–85; PULSE 61–102; RESP 16–22; TEMP 97.7–98.9; O2SAT 92–100
[2024-06-10 01:13] LABS: BILIRUBIN,URINE NEGATIVE (NEGATIVE); CLARITY,URINE CLEAR (CLEAR); COLOR,URINE YELLOW (YELLOW); GLUCOSE, URINE NEGATIVE (NEGATIVE); KETONES,URINE NEGATIVE (NEGATIVE); LEUKOCYTE ESTERASE ,URINE SMALL (NEGATIVE); NITRITE,URINE NEGATIVE (NEGATIVE); PH,URINE 7 (5 - 7); PROTEIN,URINE DIPSTICK 2+ (NEGATIVE); URINE UROBILINOGEN 0.2 mg/dL (0.2 - 1)
[2024-06-10] MEDS ORDERED: ONDANSETRON HCL INJ 2MG/ML 2ML 2 MG/ML VIAL IV PRN (01:15)
[2024-06-10 01:59] LABS: BACTERIA,URINE MANY /HPF; EPITHELIAL CELLS,URINE FEW /LPF; RBC,URINE >50 /HPF (0-5); RENAL EPITHELIAL CELLS,URINE FEW; WBC,URINE (MAN) >50 /HPF (0-5)
[2024-06-10] MEDS: SODIUM CHLORIDE 0.9% 1000ML 1,000 ML IV SCH (04:42)
[2024-06-10 09:59] LABS: TROPONIN I 0.052 ng/mL (0-0.300)
[2024-06-10] MEDS: Morphine 4mg INJECTION 4 MG/ML INJ IV PRN (11:08)
[2024-06-10] MEDS: LOSARTAN POTASSIUM 25 MG TAB PO SCH (12:48)
[2024-06-10] MEDS ORDERED: ZOLOFT50 MG PO (13:09)
[2024-06-10] MEDS ORDERED: ZOLOFT50 MG (13:09)
[2024-06-10] MEDS ORDERED: ALLOPURINOL100 MG PO (13:09)
[2024-06-10] MEDS ORDERED: MECLIZINE HCL12.5 MG PO (13:09)
[2024-06-10] MEDS ORDERED: AMIODARONE HCL200 MG PO (13:09)
[2024-06-10] MEDS: PANTOPRAZOLE SOD 40 MG TABEC PO SCH (16:40)
[2024-06-10] MEDS: ACETAMINOPHEN 325 MG TAB PO PRN (16:41)
[2024-06-11] VITALS (12 sets, daily range): BP systolic 115–161; BP diastolic 59–99; PULSE 56–80; RESP 17–20; TEMP 97.3–98.3; O2SAT 90–100
[2024-06-11] MEDS: LEVOTHYROXINE SODIUM 100 MCG TAB PO SCH (05:30)
[2024-06-11 05:47] LABS: BASOPHILS # (AUTO) 0.1 (0.0-0.1); BASOPHILS % 0.5 % (0.0-1.0); EOSINOPHILS # (AUTO) 0.1 (0.0-0.4); EOSINOPHILS % 1.1 % (0.0-6.0); HEMATOCRIT 32.9 % (34.2-44.1); HEMOGLOBIN 10.4 g/dL (12.0-16.0); LYMPHOCYTES # (AUTO) 0.7 (1.0-3.2); MEAN CORPUSCULAR HGB CONC 31.6 g/dL (31-35); MEAN CORPUSCULAR VOLUME 97.9 fL (81-99); MONOCYTES # (AUTO) 1.1 (0.2-0.8); MONOCYTES % 9.4 % (4.4-11.3); NEUTROPHILS # (AUTO) 9.2 (2.1-6.9); NEUTROPHILS % 82.4 % (38.7-80.0); PLATELET COUNT 150 x10e3/uL (140-360); RED BLOOD COUNT 3.36 x10e6/uL (3.6-5.1); RED CELL DISTRIBUTION WIDTH 15.7 % (11.7-14.4); WHITE BLOOD COUNT 11.12 x10e3/uL (4.8-10.8)
[2024-06-11 06:13] LABS: ALBUMIN 2.5 g/dL (3.5-5.0); ALBUMIN/GLOBULIN RATIO 0.7 (0.8-2.0); BILIRUBIN,TOTAL 0.6 mg/dL (0.2-1.2); CALCIUM 7.9 mg/dL (8.4-10.2); CREATININE, SERUM 2.17 mg/dL (0.57-1.11); TOTAL PROTEIN 5.9 g/dL (6.5-8.1)
[2024-06-11 06:18] LABS: TROPONIN I 0.257 ng/mL (0-0.300)
[2024-06-11] MEDS: FUROSEMIDE 40 MG TAB PO SCH (08:32)
[2024-06-11] MEDS: ASPIRIN 81 MG CHEW TAB PO SCH (08:32)
[2024-06-11] MEDS: CRESTOR 10MG PO SCH (08:33)
[2024-06-11 15:41] LABS: TROPONIN I 0.217 ng/mL (0-0.300)
[2024-06-11 17:40] LABS: ABG PH 7.31 (7.35-7.45)
[2024-06-11 17:41] LABS: ABG HCO3 18 mmol/L (22-26); ABG PCO2 36 mmHg (35-45); ABG PO2 95 mmHg (80-105); ABG TCO2 19
[2024-06-11] MEDS: SODIUM BICARBONATE 8.4% VIAL 50 ML in SODIUM CHLORIDE 0.45% 1,000 ML IV ONE (20:48)
[2024-06-12] VITALS (10 sets, daily range): BP systolic 147–201; BP diastolic 71–94; PULSE 56–74; RESP 18–21; TEMP 97.4–98.3; O2SAT 95–100
[2024-06-12 07:06] LABS: ANION GAP 16.1 mmol/L (8-16); CALCIUM 8.3 mg/dL (8.4-10.2); CREATININE, SERUM 1.88 mg/dL (0.57-1.11); POTASSIUM 4.1 mmol/L (3.5-5.1)
[2024-06-12 10:02] LABS: BASOPHILS # (AUTO) 0.1 (0.0-0.1); BASOPHILS % 0.9 % (0.0-1.0); EOSINOPHILS # (AUTO) 0.3 (0.0-0.4); EOSINOPHILS % 3.4 % (0.0-6.0); HEMATOCRIT 37.5 % (34.2-44.1); LYMPHOCYTES # (AUTO) 0.9 (1.0-3.2); LYMPHOCYTES % 11.3 % (18.0-39.1); MEAN CORPUSCULAR HEMOGLOBIN 30.6 pg (28-32); MEAN CORPUSCULAR HGB CONC 29.3 g/dL (31-35); MEAN CORPUSCULAR VOLUME 104.2 fL (81-99); MONOCYTES # (AUTO) 0.8 (0.2-0.8); MONOCYTES % 9.8 % (4.4-11.3); NEUTROPHILS # (AUTO) 5.7 (2.1-6.9); NEUTROPHILS % 73.8 % (38.7-80.0); PLATELET COUNT 130 x10e3/uL (140-360); RED CELL DISTRIBUTION WIDTH 15.9 % (11.7-14.4); WHITE BLOOD COUNT 7.73 x10e3/uL (4.8-10.8)
[2024-06-12] MEDS: HYDRALAZINE HCL 20 MG/ML VIAL IV PRN (10:51)
[2024-06-12] MEDS ORDERED: SODIUM BICARBONATE 8.4% INJ 50 ML SYR IV STA (15:19)
[2024-06-12] MEDS: MECLIZINE HCL 12.5 MG TAB PO SCH (16:04)
[2024-06-12] MEDS: NIFEDIPINE CR 30 MG TAB PO ONE (16:04)
[2024-06-12] MEDS: SODIUM BICARBONATE 8.4% VIAL 50 ML in SODIUM CHLORIDE 0.45% 1,000 ML IV ONE (17:09)
[2024-06-13] VITALS (10 sets, daily range): BP systolic 138–194; BP diastolic 75–103; PULSE 64–75; RESP 17–20; TEMP 98.1–98.4; O2SAT 96–100
[2024-06-13 06:39] LABS: ANION GAP 12.9 mmol/L (8-16); CALCIUM 7.8 mg/dL (8.4-10.2); CREATININE, SERUM 1.1 mg/dL (0.57-1.11)
[2024-06-13 06:42] LABS: POTASSIUM 2.9 mmol/L (3.5-5.1)
[2024-06-13] MEDS: AMIODARONE HCL 200 MG TAB PO SCH (08:42)
[2024-06-13] MEDS: NIFEDIPINE CR 30 MG TAB PO SCH (08:44)
[2024-06-13] MEDS: LABETALOL HCL 5 MG/ML 20ML VIAL IV STA (13:19)
[2024-06-13] MEDS: MAGNESIUM SULFATE 2GM/50ML 50 ML IV ONE (13:19)
[2024-06-13] MEDS: MAGNESIUM SULF 1GRAM/DEXTROSE 100 ML IV ONE (15:21)
[2024-06-13] MEDS: POTASSIUM PHOSPHATE 15 MM in SODIUM CHLORIDE 0.9% 250ML 250 ML IV ONE (21:12)
[2024-06-14] VITALS (8 sets, daily range): BP systolic 160–179; BP diastolic 75–97; PULSE 68–84; RESP 17–20; TEMP 97–98.4; O2SAT 97–100
[2024-06-14] MEDS: POTASSIUM CHLORIDE 10MEQ EA PO ONE (00:37)
[2024-06-14 05:59] LABS: BASOPHILS # (AUTO) 0.1 (0.0-0.1); BASOPHILS % 0.7 % (0.0-1.0); EOSINOPHILS # (AUTO) 0.2 (0.0-0.4); HEMATOCRIT 34.5 % (34.2-44.1); HEMOGLOBIN 11.3 g/dL (12.0-16.0); MEAN CORPUSCULAR HEMOGLOBIN 30.3 pg (28-32); MEAN CORPUSCULAR HGB CONC 32.8 g/dL (31-35); MEAN CORPUSCULAR VOLUME 92.5 fL (81-99); MONOCYTES # (AUTO) 0.9 (0.2-0.8); MONOCYTES % 9.8 % (4.4-11.3); NEUTROPHILS # (AUTO) 6.5 (2.1-6.9); NEUTROPHILS % 74.8 % (38.7-80.0); PLATELET COUNT 160 x10e3/uL (140-360); RED BLOOD COUNT 3.73 x10e6/uL (3.6-5.1); RED CELL DISTRIBUTION WIDTH 14.8 % (11.7-14.4)
[2024-06-14 06:34] LABS: ANION GAP 14.1 mmol/L (8-16); CREATININE, SERUM 0.87 mg/dL (0.57-1.11); MAGNESIUM 1.8 MG/DL (1.3-2.1); PHOSPHORUS 2.7 MG/DL (2.3-4.7)
[2024-06-14 06:36] LABS: POTASSIUM 3.1 mmol/L (3.5-5.1)
[2024-06-14] MEDS: AMOXICILLIN/CLAVULANATE K 500 MG TAB PO SCH (20:58)
[2024-06-15] VITALS (10 sets, daily range): BP systolic 135–163; BP diastolic 60–95; PULSE 72–110; RESP 18–22; TEMP 98.1–99.1; O2SAT 96–100
[2024-06-15] MEDS: MUPIROCIN 2% OINT 22 GM TUBE TOP SCH (10:01)
[2024-06-15 13:48] LABS: BASOPHILS # (AUTO) 0.1 (0.0-0.1); BASOPHILS % 0.4 % (0.0-1.0); EOSINOPHILS % 0.2 % (0.0-6.0); HEMATOCRIT 34.1 % (34.2-44.1); HEMOGLOBIN 11.5 g/dL (12.0-16.0); LYMPHOCYTES # (AUTO) 0.8 (1.0-3.2); MEAN CORPUSCULAR HEMOGLOBIN 30.6 pg (28-32); MEAN CORPUSCULAR HGB CONC 33.7 g/dL (31-35); MEAN CORPUSCULAR VOLUME 90.7 fL (81-99); MONOCYTES # (AUTO) 1.2 (0.2-0.8); MONOCYTES % 9.2 % (4.4-11.3); NEUTROPHILS % 81.7 % (38.7-80.0); PLATELET COUNT 178 x10e3/uL (140-360); RED BLOOD COUNT 3.76 x10e6/uL (3.6-5.1); RED CELL DISTRIBUTION WIDTH 14.7 % (11.7-14.4); WHITE BLOOD COUNT 13.41 x10e3/uL (4.8-10.8)
[2024-06-15 14:05] LABS: CALCIUM 9.1 mg/dL (8.4-10.2); CREATININE, SERUM 0.88 mg/dL (0.57-1.11); MAGNESIUM 1.5 MG/DL (1.3-2.1)
[2024-06-15] MEDS: MAGNESIUM SULFATE 2GM/50ML 50 ML IV ONE (16:48)
[2024-06-15] MEDS: MAGNESIUM SULF 1GRAM/DEXTROSE 100 ML IV ONE (19:05)
[2024-06-15] MEDS: SERTRALINE HCL 50 MG TAB PO SCH (20:31)
[2024-06-15] MEDS: POTASSIUM CHLORIDE 10MEQ EA PO ONE (20:31)
[2024-06-16] VITALS (11 sets, daily range): BP systolic 128–168; BP diastolic 65–85; PULSE 57–87; RESP 17–20; TEMP 96.7–99.7; O2SAT 95–100
[2024-06-16 06:04] LABS: BASOPHILS # (AUTO) 0.1 (0.0-0.1); BASOPHILS % 0.3 % (0.0-1.0); EOSINOPHILS # (AUTO) 0.1 (0.0-0.4); EOSINOPHILS % 0.7 % (0.0-6.0); HEMATOCRIT 33.2 % (34.2-44.1); HEMOGLOBIN 11.1 g/dL (12.0-16.0); LYMPHOCYTES % 7.1 % (18.0-39.1); MEAN CORPUSCULAR HEMOGLOBIN 30.6 pg (28-32); MEAN CORPUSCULAR HGB CONC 33.4 g/dL (31-35); MEAN CORPUSCULAR VOLUME 91.5 fL (81-99); MONOCYTES # (AUTO) 1.3 (0.2-0.8); MONOCYTES % 8.8 % (4.4-11.3); NEUTROPHILS # (AUTO) 11.3 (2.1-6.9); NEUTROPHILS % 78.8 % (38.7-80.0); PLATELET COUNT 185 x10e3/uL (140-360); RED BLOOD COUNT 3.63 x10e6/uL (3.6-5.1); RED CELL DISTRIBUTION WIDTH 14.6 % (11.7-14.4); WHITE BLOOD COUNT 14.34 x10e3/uL (4.8-10.8)
[2024-06-16 06:25] LABS: ANION GAP 13.3 mmol/L (8-16); CALCIUM 9.1 mg/dL (8.4-10.2); CREATININE, SERUM 0.87 mg/dL (0.57-1.11); MAGNESIUM 2.3 MG/DL (1.3-2.1); PHOSPHORUS 2.6 MG/DL (2.3-4.7)
[2024-06-16 06:43] LABS: POTASSIUM 3.3 mmol/L (3.5-5.1)
[2024-06-16] MEDS: SODIUM CHLORIDE 0.9% 1000ML 1,000 ML IV SCH (10:30)
[2024-06-16] MEDS: CEFTRIAXONE 2 GM in SODIUM CHLORIDE 0.9% 100 ML IV SCH (10:30)
[2024-06-16] MEDS: POTASSIUM CHLORIDE 10MEQ EA PO ONE (10:31)
[2024-06-16] MEDS ORDERED: IBUPROFEN 400 MG TAB PO PRN (13:00)
[2024-06-16] MEDS: IBUPROFEN 400 MG TAB PO ONE (13:16)
[2024-06-16] MEDS ORDERED: MAGNESIUM OXIDE 400 MG TAB PO SCH (17:00)
[2024-06-16] MEDS: TRAMADOL HCL 50 MG TAB PO PRN (20:32)
[2024-06-17] VITALS (10 sets, daily range): BP systolic 133–155; BP diastolic 74–88; PULSE 64–84; RESP 16–20; TEMP 97.7–98.7; O2SAT 98–100
[2024-06-17 05:17] LABS: BASOPHILS # (AUTO) 0.1 (0.0-0.1); BASOPHILS % 0.4 % (0.0-1.0); EOSINOPHILS # (AUTO) 0.2 (0.0-0.4); EOSINOPHILS % 1.6 % (0.0-6.0); HEMATOCRIT 29.8 % (34.2-44.1); HEMOGLOBIN 9.7 g/dL (12.0-16.0); LYMPHOCYTES # (AUTO) 0.9 (1.0-3.2); LYMPHOCYTES % 6.8 % (18.0-39.1); MEAN CORPUSCULAR HEMOGLOBIN 30.3 pg (28-32); MEAN CORPUSCULAR HGB CONC 32.6 g/dL (31-35); MEAN CORPUSCULAR VOLUME 93.1 fL (81-99); MONOCYTES # (AUTO) 1.1 (0.2-0.8); MONOCYTES % 8.2 % (4.4-11.3); NEUTROPHILS # (AUTO) 10.4 (2.1-6.9); NEUTROPHILS % 80.4 % (38.7-80.0); PLATELET COUNT 190 x10e3/uL (140-360); RED CELL DISTRIBUTION WIDTH 14.6 % (11.7-14.4); WHITE BLOOD COUNT 12.87 x10e3/uL (4.8-10.8)
[2024-06-17 06:50] LABS: ANION GAP 13.6 mmol/L (8-16); CALCIUM 8.5 mg/dL (8.4-10.2); CREATININE, SERUM 0.96 mg/dL (0.57-1.11); POTASSIUM 3.6 mmol/L (3.5-5.1)
[2024-06-17 17:00] LABS: BILIRUBIN,URINE NEGATIVE (NEGATIVE); CLARITY,URINE CLEAR (CLEAR); COLOR,URINE YELLOW (YELLOW); GLUCOSE, URINE NEGATIVE (NEGATIVE); KETONES,URINE NEGATIVE (NEGATIVE); LEUKOCYTE ESTERASE ,URINE SMALL (NEGATIVE); NITRITE,URINE NEGATIVE (NEGATIVE); PH,URINE 5.5 (5 - 7); PROTEIN,URINE DIPSTICK 1+ (NEGATIVE); URINE UROBILINOGEN 0.2 mg/dL (0.2 - 1)
[2024-06-17 17:16] LABS: BACTERIA,URINE FEW /HPF; EPITHELIAL CELLS,URINE RARE /LPF; RBC,URINE 0-5 /HPF (0-5); YEAST,URINE FEW
[2024-06-18] VITALS (9 sets, daily range): BP systolic 112–148; BP diastolic 65–82; PULSE 63–80; RESP 17–20; TEMP 97.4–97.7; O2SAT 96–100
[2024-06-18] MEDS: METHYLPREDNISOLONE SOD SUCC 40 MG/ML VIAL 1ML IV ONE (11:43)
[2024-06-18] MEDS ORDERED: ONDANSETRON HCL 4 MG ORAL DISINTEGRATING TAB PO PRN (12:00)
[2024-06-18] MEDS: AMOXICILLIN/CLAVULANATE K 500 MG TAB PO SCH (20:28)
[2024-06-19 04:00] VITALS: BP 155/78; PULSE 63; RESP 17; TEMP 97.7; O2SAT 100
[2024-06-19 06:40] VITALS: PULSE 74; RESP 20; O2SAT 96
[2024-06-19 10:02] VITALS: BP 147/75; PULSE 60; RESP 17; TEMP 97.4; O2SAT 100
[2024-06-19] MEDS ORDERED: ENOXAPARIN SOD INJ 40 MG/0.4 ML SYR SC SCH (10:45)
[2024-06-19 12:00] VITALS: BP 136/72; PULSE 60; RESP 17; TEMP 97.4; O2SAT 100
[2024-06-19] MEDS: KETOROLAC TROMETHAMINE 30 MG/ML VIAL IV ONE (12:18)
[2024-06-20] MEDS ORDERED: PREDNISONE 20 MG TAB PO SCH (09:00)
[2024-06-20] MEDS ORDERED: ENOXAPARIN SOD INJ 40 MG/0.4 ML SYR SC SCH (17:00)
[2024-06-23 05:50] LABS: ABG HCO3 18 mmol/L (22-26); ABG PCO2 36 mmHg (35-45); ABG PH 7.31 (7.35-7.45); ABG PO2 95 mmHg (80-105); ABG TCO2 19
== END 2024-06-19 15:05 | DRG 871 ==
LOC: ER 22:04 → ERHOLD 06-10 01:08 → MED/SURG2 06-10 02:47
PROVIDERS: ADMIT Internal Medicine; ATTEND Internal Medicine
PROC: 3E03329 Introduction of Other Anti-infective into Peripheral Vein, Percutaneous Approach (ICD-10-PCS; 2024-06-09)
PROC: 4A033R1 Measurement of Arterial Saturation, Peripheral, Percutaneous Approach (ICD-10-PCS; principal; 2024-06-11)
PROC: 4A033R1 Measurement of Arterial Saturation, Peripheral, Percutaneous Approach (ICD-10-PCS; 2024-06-11)
PROC: 02HV33Z Insertion of Infusion Device into Superior Vena Cava, Percutaneous Approach (ICD-10-PCS; 2024-06-12)
PROC: B548ZZA Ultrasonography of Superior Vena Cava, Guidance (ICD-10-PCS; 2024-06-12)
DX: A41.51 Sepsis due to Escherichia coli [E. coli] (principal); G93.41 Metabolic encephalopathy; J96.01 Acute respiratory failure with hypoxia; N10 Acute pyelonephritis; E87.20 Acidosis, unspecified; N17.9 Acute kidney failure, unspecified; E86.0 Dehydration; I12.9 Hypertensive chronic kidney disease with stage 1 through stage 4 chronic kidney disease, or unspecified chronic kidney disease; N18.9 Chronic kidney disease, unspecified; R00.0 Tachycardia, unspecified; E03.9 Hypothyroidism, unspecified; I25.10 Atherosclerotic heart disease of native coronary artery without angina pectoris; K21.9 Gastro-esophageal reflux disease without esophagitis; E78.5 Hyperlipidemia, unspecified; E87.6 Hypokalemia; R10.84 Generalized abdominal pain; R11.2 Nausea with vomiting, unspecified; K57.90 Diverticulosis of intestine, part unspecified, without perforation or abscess without bleeding; R19.7 Diarrhea, unspecified; E83.42 Hypomagnesemia; E83.39 Other disorders of phosphorus metabolism; R09.02 Hypoxemia; M19.031 Primary osteoarthritis, right wrist; M06.9 Rheumatoid arthritis, unspecified; R53.81 Other malaise; Z11.52 Encounter for screening for COVID-19; Z86.718 Personal history of other venous thrombosis and embolism; Z79.82 Long term (current) use of aspirin; Z79.899 Other long term (current) drug therapy
CPT/HCPCS: 36415; 36569; 36600; 71045; 74176; 80048; 80053; 81001; 82550; 82805; 83605; 83690; 83735; 84100; 84484; 84550; 85025; 86431; 87040; 87071; 87086; 87186; 87205; 93005; 93971; 94799; 99252; 99285; J0360; J0696; J2270; J2405; J2470; J2543; J2919; J3475; J7030; J7050

== ENCOUNTER 2024-08-27 20:57 | Inpatient (IN) | payer MEDICARE ==
[~2024-08-27] VITALS: Ht 160 cm; Wt 72.6 kg
[~2024-08-27 20:57] MED LIST changes: +ALLOPURINOL100 MG PO; +AMIODARONE HCL200 MG PO; +MECLIZINE HCL12.5 MG PO; +ZOLOFT50 MG; +ZOLOFT50 MG PO
[2024-08-27 21:37] LABS: BASOPHILS # (AUTO) 0.1 (0.0-0.1); BASOPHILS % 1.1 % (0.0-1.0); EOSINOPHILS # (AUTO) 0.2 (0.0-0.4); HEMOGLOBIN 12.8 g/dL (12.0-16.0); LYMPHOCYTES # (AUTO) 1.1 (1.0-3.2); LYMPHOCYTES % 10.5 % (18.0-39.1); MEAN CORPUSCULAR HEMOGLOBIN 30.7 pg (28-32); MEAN CORPUSCULAR HGB CONC 32.8 g/dL (31-35); MEAN CORPUSCULAR VOLUME 93.5 fL (81-99); MONOCYTES # (AUTO) 0.6 (0.2-0.8); MONOCYTES % 6.3 % (4.4-11.3); NEUTROPHILS # (AUTO) 8.1 (2.1-6.9); NEUTROPHILS % 79.7 % (38.7-80.0); PLATELET COUNT 198 x10e3/uL (140-360); RED BLOOD COUNT 4.17 x10e6/uL (3.6-5.1); RED CELL DISTRIBUTION WIDTH 15.9 % (11.7-14.4); WHITE BLOOD COUNT 10.17 x10e3/uL (4.8-10.8)
[2024-08-27 21:48] LABS: INR 0.92; PROTHROMBIN TIME 13.2 seconds (11.9-14.5)
[2024-08-27 21:49] LABS: PARTIAL THROMBOPLASTIN TIME 35.2 seconds (23.8-35.5)
[2024-08-27 21:55] LABS: ALBUMIN 3.8 g/dL (3.5-5.0); ALBUMIN/GLOBULIN RATIO 1.1 (0.8-2.0); ANION GAP 16.1 mmol/L (8-16); BILIRUBIN,TOTAL 0.4 mg/dL (0.2-1.2); CALCIUM 9.3 mg/dL (8.4-10.2); CREATININE, SERUM 1.45 mg/dL (0.57-1.11); POTASSIUM 4.1 mmol/L (3.5-5.1); TOTAL PROTEIN 7.2 g/dL (6.5-8.1)
[2024-08-27] MEDS: ACETAMINOPHEN 325 MG TAB PO ONE (21:58)
[2024-08-27] MEDS: SODIUM CHLORIDE 0.9% 1000ML 1,000 ML IV ONE (21:58)
[2024-08-28] VITALS (10 sets, daily range): BP systolic 136–179; BP diastolic 75–89; PULSE 65–85; RESP 16–20; TEMP 97.6–98.7; O2SAT 95–100
[2024-08-28 00:19] LABS: BILIRUBIN,URINE NEGATIVE (NEGATIVE); CLARITY,URINE HAZY (CLEAR); COLOR,URINE YELLOW (YELLOW); GLUCOSE, URINE NEGATIVE (NEGATIVE); KETONES,URINE NEGATIVE (NEGATIVE); LEUKOCYTE ESTERASE ,URINE SMALL (NEGATIVE); NITRITE,URINE POSITIVE (NEGATIVE); PH,URINE 6.5 (5 - 7); PROTEIN,URINE DIPSTICK 1+ (NEGATIVE); URINE UROBILINOGEN 0.2 mg/dL (0.2 - 1)
[2024-08-28 00:21] LABS: BACTERIA,URINE MANY /HPF; EPITHELIAL CELLS,URINE FEW /LPF; WBC,URINE (MAN) >50 /HPF (0-5)
[2024-08-28] MEDS ORDERED: ONDANSETRON HCL INJ 2MG/ML 2ML 2 MG/ML VIAL IV PRN (00:45)
[2024-08-28] MEDS ORDERED: SODIUM CHLORIDE FLUSH 10 ML SYR INJ PRN (00:45)
[2024-08-28] MEDS ORDERED: LEVOTHYROXINE50 MCG PO (03:54)
[2024-08-28] MEDS ORDERED: ROSUVASTATIN CA10 MG PO (03:54)
[2024-08-28] MEDS ORDERED: FERROUS GLUCON324 M1 PO (03:54)
[2024-08-28] MEDS ORDERED: OMEPRAZOLE20 MG PO (03:54)
[2024-08-28] MEDS: ACETAMINOPHEN 325 MG TAB PO PRN (06:02)
[2024-08-28 08:12] LABS: TROPONIN I 0.012 ng/mL (0-0.300)
[2024-08-28] MEDS: ACETAMINOPHEN/ASPIRIN/CAFFEINE 1 EA TAB PO PRN (15:24)
[2024-08-28] MEDS ORDERED: LEVOTHYROXINE SODIUM 50 MCG TAB PO SCH (17:30)
[2024-08-28] MEDS ORDERED: SERTRALINE HCL 50 MG TAB PO SCH (17:30)
[2024-08-28] MEDS ORDERED: POLYETHYLENE GLYCOL 3350 17 GM PACK PO PRN (17:30)
[2024-08-28] MEDS ORDERED: FERROUS SULFATE 325 MG TAB PO SCH (17:30)
[2024-08-28] MEDS ORDERED: AMIODARONE HCL 200 MG TAB PO SCH (17:30)
[2024-08-28] MEDS ORDERED: ALLOPURINOL 100 MG TAB PO SCH (17:30)
[2024-08-28] MEDS ORDERED: CRESTOR 10MG PO SCH (17:30)
[2024-08-28] MEDS ORDERED: PANTOPRAZOLE SODIUM 20 MG TABLET.DR PO SCH (17:30)
[2024-08-28] MEDS ORDERED: MECLIZINE HCL 12.5 MG TAB PO SCH (17:30)
[2024-08-28] MEDS: AMLODIPINE BESYLATE 5 MG TAB PO ONE (18:31)
[2024-08-28] MEDS: HYDRALAZINE HCL 20 MG/ML VIAL IV PRN (21:43)
[2024-08-29] VITALS (9 sets, daily range): BP systolic 147–172; BP diastolic 77–89; PULSE 63–87; RESP 16–22; TEMP 97.7–98.5; O2SAT 95–100
[2024-08-29] MEDS: LEVOTHYROXINE SODIUM 50 MCG TAB PO SCH (05:42)
[2024-08-29 07:05] LABS: BASOPHILS # (AUTO) 0.1 (0.0-0.1); BASOPHILS % 1.4 % (0.0-1.0); EOSINOPHILS # (AUTO) 0.4 (0.0-0.4); EOSINOPHILS % 5.1 % (0.0-6.0); HEMATOCRIT 38.3 % (34.2-44.1); HEMOGLOBIN 12.3 g/dL (12.0-16.0); LYMPHOCYTES # (AUTO) 2.1 (1.0-3.2); LYMPHOCYTES % 26.4 % (18.0-39.1); MEAN CORPUSCULAR HEMOGLOBIN 30.2 pg (28-32); MEAN CORPUSCULAR HGB CONC 32.1 g/dL (31-35); MEAN CORPUSCULAR VOLUME 94.1 fL (81-99); MONOCYTES # (AUTO) 0.8 (0.2-0.8); MONOCYTES % 9.8 % (4.4-11.3); NEUTROPHILS # (AUTO) 4.5 (2.1-6.9); NEUTROPHILS % 56.9 % (38.7-80.0); PLATELET COUNT 171 x10e3/uL (140-360); RED BLOOD COUNT 4.07 x10e6/uL (3.6-5.1); WHITE BLOOD COUNT 7.85 x10e3/uL (4.8-10.8)
[2024-08-29 07:20] LABS: ALBUMIN 3.3 g/dL (3.5-5.0); ANION GAP 15.2 mmol/L (8-16); BILIRUBIN,TOTAL 0.3 mg/dL (0.2-1.2); CREATININE, SERUM 1.38 mg/dL (0.57-1.11); POTASSIUM 4.2 mmol/L (3.5-5.1); TOTAL PROTEIN 6.7 g/dL (6.5-8.1)
[2024-08-29 07:37] LABS: CHOL/HDL RATIO 2.4 (3.0-3.6); PHOSPHORUS 3.2 MG/DL (2.3-4.7)
[2024-08-29 08:01] LABS: THYROID STIMULATING HORMONE 0.292 uIU/mL (0.350-4.940)
[2024-08-29] MEDS: DOCUSATE SODIUM 100 MG CAP PO SCH (09:00)
[2024-08-29] MEDS: AMIODARONE HCL 200 MG TAB PO SCH (09:22)
[2024-08-29] MEDS: FERROUS SULFATE 325 MG TAB PO SCH (09:22)
[2024-08-29] MEDS: AMLODIPINE BESYLATE 5 MG TAB PO SCH (09:23)
[2024-08-29] MEDS: SERTRALINE HCL 50 MG TAB PO SCH (09:23)
[2024-08-29] MEDS: CRESTOR 10MG PO SCH (09:23)
[2024-08-29] MEDS: PANTOPRAZOLE SODIUM 20 MG TABLET.DR PO SCH (09:23)
[2024-08-29 12:58] LABS: TROPONIN I 0.01 ng/mL (0-0.300)
[2024-08-29 13:11] LABS: FREE T4 (FREE THYROXINE) 0.98 ng/dL (0.8-1.8)
[2024-08-29] MEDS: MECLIZINE HCL 12.5 MG TAB PO SCH (17:29)
[2024-08-29] MEDS: ALLOPURINOL 100 MG TAB PO SCH (17:30)
[2024-08-30] VITALS (10 sets, daily range): BP systolic 108–193; BP diastolic 67–99; PULSE 60–71; RESP 18–20; TEMP 97.3–98.1; O2SAT 98–100
[2024-08-30] MEDS: LEVOTHYROXINE SODIUM 50 MCG TAB PO SCH (05:40)
[2024-08-30 07:19] LABS: TROPONIN I 0.05 ng/mL (0-0.300)
[2024-08-30 09:15] LABS: ANION GAP 19.3 mmol/L (8-16); CALCIUM 9.3 mg/dL (8.4-10.2); CREATININE, SERUM 1.28 mg/dL (0.57-1.11); POTASSIUM 4.3 mmol/L (3.5-5.1)
[2024-08-30 11:55] LABS: ABG HCO3 18 mmol/L (22-26); ABG PCO2 26 mmHg (35-45); ABG PH 7.46 (7.35-7.45); ABG PO2 88 mmHg (80-105); ABG TCO2 19
[2024-08-30] MEDS: SODIUM BICARBONATE 8.4% VIAL 50 ML in SODIUM CHLORIDE 0.45% 1,000 ML IV SCH (11:58)
[2024-08-30] MEDS: AMLODIPINE BESYLATE 5 MG TAB PO ONE (11:58)
[2024-08-30] MEDS: CHOLESTYRAMINE 4 GM PACKET PO SCH (20:23)
[2024-08-31] VITALS: BP 182/71; PULSE 63; RESP 20; TEMP 97.7; O2SAT 100
[2024-08-31 04:12] VITALS: BP 166/84; PULSE 70; RESP 18; TEMP 98.1; O2SAT 100
[2024-08-31 07:00] LABS: BASOPHILS # (AUTO) 0.1 (0.0-0.1); BASOPHILS % 1.1 % (0.0-1.0); EOSINOPHILS # (AUTO) 0.5 (0.0-0.4); EOSINOPHILS % 7.1 % (0.0-6.0); HEMATOCRIT 37.5 % (34.2-44.1); HEMOGLOBIN 11.9 g/dL (12.0-16.0); LYMPHOCYTES # (AUTO) 1.7 (1.0-3.2); LYMPHOCYTES % 26.3 % (18.0-39.1); MEAN CORPUSCULAR HEMOGLOBIN 29.9 pg (28-32); MEAN CORPUSCULAR HGB CONC 31.7 g/dL (31-35); MEAN CORPUSCULAR VOLUME 94.2 fL (81-99); MONOCYTES # (AUTO) 0.7 (0.2-0.8); MONOCYTES % 10.6 % (4.4-11.3); NEUTROPHILS # (AUTO) 3.6 (2.1-6.9); NEUTROPHILS % 54.6 % (38.7-80.0); PLATELET COUNT 184 x10e3/uL (140-360); RED BLOOD COUNT 3.98 x10e6/uL (3.6-5.1); RED CELL DISTRIBUTION WIDTH 16.1 % (11.7-14.4); WHITE BLOOD COUNT 6.61 x10e3/uL (4.8-10.8)
[2024-08-31 07:27] LABS: ANION GAP 14.6 mmol/L (8-16); CALCIUM 8.8 mg/dL (8.4-10.2); CREATININE, SERUM 1.07 mg/dL (0.57-1.11); POTASSIUM 3.6 mmol/L (3.5-5.1)
[2024-08-31 08:45] VITALS: BP 159/77; PULSE 70; RESP 18; TEMP 97.9; O2SAT 98
[2024-08-31] MEDS: AMLODIPINE BESYLATE 5 MG TAB PO SCH (08:59)
[2024-08-31] MEDS: ASCORBIC ACID 500 MG TAB PO SCH (09:00)
[2024-08-31 12:34] VITALS: BP 106/58; PULSE 60; RESP 18; TEMP 98; O2SAT 95
[2024-08-31] MEDS: ACETAMIN/BUTALBITAL/CAFFEINE TAB PO PRN (14:25)
[2024-08-31] MEDS ORDERED: CHOLESTYRAMINE L4 GM PO (17:15)
[2024-08-31] MEDS ORDERED: ASCORBIC ACID500 MG PO (17:15)
[2024-08-31] MEDS ORDERED: NORVASC5 MG PO (17:15)
[2024-08-31] MEDS ORDERED: ACETAMINOPHEN325 M1 PO (17:15)
[2024-08-31] MEDS ORDERED: ONDANSETRON ODT4 MG PO (17:15)
[2024-08-31] MEDS ORDERED: CIPRO250 MG PO (17:19)
[2024-08-31] MEDS: LACTATED RINGER'S 1,000 ML INJ ONE (17:44)
== END 2024-08-31 18:52 | disposition home health service (06) | DRG 690 ==
LOC: ER 21:21 → ERHOLD 08-28 00:40 → MED/SURG3 08-28 03:00
PROVIDERS: ADMIT Internal Medicine; ATTEND Internal Medicine
PROC: 4A033R1 Measurement of Arterial Saturation, Peripheral, Percutaneous Approach (ICD-10-PCS; principal; 2024-08-30)
DX: N39.0 Urinary tract infection, site not specified (principal); N17.9 Acute kidney failure, unspecified; R78.81 Bacteremia; I45.2 Bifascicular block; E87.3 Alkalosis; E87.20 Acidosis, unspecified; B96.20 Unspecified Escherichia coli [E. coli] as the cause of diseases classified elsewhere; I12.9 Hypertensive chronic kidney disease with stage 1 through stage 4 chronic kidney disease, or unspecified chronic kidney disease; N18.9 Chronic kidney disease, unspecified; I25.10 Atherosclerotic heart disease of native coronary artery without angina pectoris; E03.9 Hypothyroidism, unspecified; M19.91 Primary osteoarthritis, unspecified site; D50.9 Iron deficiency anemia, unspecified; F41.9 Anxiety disorder, unspecified; E78.5 Hyperlipidemia, unspecified; Z66 Do not resuscitate; Z86.718 Personal history of other venous thrombosis and embolism; Z86.711 Personal history of pulmonary embolism; Z96.651 Presence of right artificial knee joint; Z79.899 Other long term (current) drug therapy
CPT/HCPCS: 36415; 36600; 71045; 76770; 80048; 80053; 80061; 81001; 82550; 82805; 82948; 83605; 83735; 84100; 84439; 84443; 84484; 85025; 85610; 85730; 87040; 87071; 87086; 87186; 87205; 93005; 94799; 99283; J0360; J0696; J7030

== ENCOUNTER 2024-12-02 10:57 | Inpatient (IN) | payer MEDICARE ==
[~2024-12-02] VITALS: Ht 160 cm; Wt 72.6 kg
[2024-12-02] VITALS (16 sets, daily range): BP systolic 115–178; BP diastolic 65–124; PULSE 56–70; RESP 12–18; TEMP 97.5–98; O2SAT 97–100
[~2024-12-02 10:57] MED LIST changes: +ACETAMINOPHEN325 M1 PO; +ASCORBIC ACID500 MG PO; +CHOLESTYRAMINE L4 GM PO; +CIPRO250 MG PO; +FERROUS GLUCON324 M1 PO; +LEVOTHYROXINE50 MCG PO; +NORVASC5 MG PO; +OMEPRAZOLE20 MG PO; +ONDANSETRON ODT4 MG PO; +ROSUVASTATIN CA10 MG PO
[2024-12-02] MEDS ORDERED: AMLODIPINE BESYLATE 5 MG TAB ONE (12:43)
[2024-12-02] MEDS: LOSARTAN POTASSIUM 25 MG TAB PO SCH (12:50)
[2024-12-02] MEDS: AMLODIPINE BESYLATE 5 MG TAB PO ONE (13:34)
[2024-12-02] MEDS: HYDRALAZINE HCL 20 MG/ML VIAL IV ONE (14:30)
[2024-12-02] MEDS: NICARDIPINE 20MG/200ML PREMIX 200 ML IV SCH (15:28)
[2024-12-02] MEDS ORDERED: ONDANSETRON HCL 4 MG ORAL DISINTEGRATING TAB PO PRN (16:00)
[2024-12-02] MEDS: ALLOPURINOL 100 MG TAB PO SCH (17:37)
[2024-12-02] MEDS: SOD POLYSTYRENE SULFONATE SUSP 15 GM/60 ML BTL PO ONE (17:37)
[2024-12-02] MEDS: LIDOCAINE HCL 1% LOCAL INJ 20 ML VIAL INJ ONE (19:56)
[2024-12-02] MEDS ORDERED: TEMAZEPAM 7.5 MG CAP PO PRN (21:00)
[2024-12-02] MEDS: SERTRALINE HCL 50 MG TAB PO SCH (21:23)
[2024-12-02] MEDS: ACETAMINOPHEN 325 MG TAB PO PRN (21:23)
[2024-12-03] VITALS (39 sets, daily range): BP systolic 112–182; BP diastolic 67–142; PULSE 50–70; RESP 11–21; TEMP 97.7–98; O2SAT 95–100
[2024-12-03 03:24] LABS: CHOL/HDL RATIO 2.1 (3.0-3.6); LDL CHOLESTEROL 61.0 MG/DL (60-130)
[2024-12-03 04:29] LABS: EST GLOMERULAR FILTRATION RATE 42.0 ML/MIN (>=60)
[2024-12-03] MEDS: AMLODIPINE BESYLATE 10 MG TAB PO SCH (07:56)
[2024-12-03] MEDS: AMIODARONE HCL 200 MG TAB PO SCH (07:56)
[2024-12-03] MEDS: LEVOTHYROXINE SODIUM 50 MCG TAB PO SCH (07:56)
[2024-12-03] MEDS: PANTOPRAZOLE SOD 40 MG TABEC PO SCH (07:56)
[2024-12-03] MEDS ORDERED: AMLODIPINE BESYLATE 10 MG TAB PO SCH (08:00)
[2024-12-03] MEDS ORDERED: AMLODIPINE BESYLATE 5 MG TAB PO SCH ×2 (09:00)
[2024-12-04] VITALS (40 sets, daily range): BP systolic 105–204; BP diastolic 47–107; PULSE 47–64; RESP 12–21; TEMP 97.9–98.2; O2SAT 94–100
[2024-12-04] MEDS: LOSARTAN POTASSIUM 25 MG TAB PO SCH (08:20)
[2024-12-04 10:10] LABS: BASOPHILS % 1.8 % (0.0-1.0); EOSINOPHILS % 5.5 % (0.0-6.0); LYMPHOCYTES % 21.4 % (18.0-39.1); MONOCYTES % 6.8 % (4.4-11.3); NEUTROPHILS % 63.9 % (38.7-80.0); RED CELL DISTRIBUTION WIDTH 16.9 % (11.7-14.4)
[2024-12-04 10:19] LABS: EST GLOMERULAR FILTRATION RATE 42.0 ML/MIN (>=60)
[2024-12-05] VITALS (19 sets, daily range): BP systolic 125–191; BP diastolic 68–135; PULSE 50–71; RESP 13–22; TEMP 97.5–98.4; O2SAT 97–100
[2024-12-05] MEDS: HYDRALAZINE HCL 20 MG/ML VIAL IV PRN (07:40)
[2024-12-05] MEDS: LOSARTAN POTASSIUM 100 MG TAB PO SCH (09:00)
[2024-12-06 03:06] VITALS: BP 167/95; PULSE 70; RESP 17; TEMP 97.6; O2SAT 98
[2024-12-06 08:00] VITALS: BP 185/98; PULSE 67; RESP 18; TEMP 98.1; O2SAT 98
[2024-12-06 09:59] VITALS: BP 185/98; PULSE 67; RESP 18; TEMP 98.1; O2SAT 98
[2024-12-06 12:00] VITALS: BP 160/89; PULSE 62; RESP 17; TEMP 97.9; O2SAT 99
[2024-12-06] MEDS: NIFEDIPINE CR 30 MG TAB PO SCH (12:12)
[2024-12-06 15:42] LABS: BASOPHILS % 1.6 % (0.0-1.0); EOSINOPHILS % 4.3 % (0.0-6.0); LYMPHOCYTES % 27.2 % (18.0-39.1); MONOCYTES % 8.9 % (4.4-11.3); NEUTROPHILS % 57.6 % (38.7-80.0); RED CELL DISTRIBUTION WIDTH 17.1 % (11.7-14.4)
[2024-12-06 16:00] VITALS: BP 141/97; PULSE 65; RESP 18; TEMP 97.9; O2SAT 100
[2024-12-06 16:01] LABS: EST GLOMERULAR FILTRATION RATE 40.0 ML/MIN (>=60)
[2024-12-06 21:00] VITALS: BP 159/77; PULSE 69; RESP 17; TEMP 97.5; O2SAT 94
[2024-12-06] MEDS: MAGNESIUM/ALUMINUM/SIMETHICONE 30 ML UDC PO PRN (22:37)
[2024-12-07 07:43] VITALS: BP 125/72; PULSE 60; RESP 21; TEMP 98.6; O2SAT 99
[2024-12-07] MEDS ORDERED: keflex PO (11:06)
[2024-12-07] MEDS ORDERED: nifedipine CR PO (11:07)
[2024-12-07 11:37] VITALS: BP 117/61; PULSE 63; RESP 16; TEMP 97.6; O2SAT 99
== END 2024-12-07 12:10 | disposition home or self-care (01) | DRG 305 ==
LOC: FSED 12:12 → ERHOLD 14:38 → ICU 16:05 → MED/SURG3 12-05 13:41
PROVIDERS: ADMIT Internal Medicine; ATTEND Internal Medicine
PROC: 02HV33Z Insertion of Infusion Device into Superior Vena Cava, Percutaneous Approach (ICD-10-PCS; principal; 2024-12-02)
DX: I16.0 Hypertensive urgency (principal); D62 Acute posthemorrhagic anemia; I10 Essential (primary) hypertension; Z66 Do not resuscitate; E03.9 Hypothyroidism, unspecified; E87.5 Hyperkalemia; R53.81 Other malaise; M10.9 Gout, unspecified; M19.90 Unspecified osteoarthritis, unspecified site; R94.4 Abnormal results of kidney function studies; W22.01XA Walked into wall, initial encounter; Y92.018 Other place in single-family (private) house as the place of occurrence of the external cause; S50.12XA Contusion of left forearm, initial encounter; T46.6X6A Underdosing of antihyperlipidemic and antiarteriosclerotic drugs, initial encounter; Z91.128 Patient's intentional underdosing of medication regimen for other reason; Z79.890 Hormone replacement therapy; Z90.49 Acquired absence of other specified parts of digestive tract; Z90.710 Acquired absence of both cervix and uterus; Z86.711 Personal history of pulmonary embolism; Z86.718 Personal history of other venous thrombosis and embolism; Z87.440 Personal history of urinary (tract) infections
CPT/HCPCS: 36415; 36568; 80048; 80053; 80061; 82550; 84484; 85025; 99282; J0360; J2470